=== PATIENT | male | born 1970 | race Caucasian/White ===

== ENCOUNTER 2023-04-03 19:43 | Emergency (ER) | payer MEDICAID ==
[~2023-04-03] VITALS: Ht 167.6 cm; Wt 75.0 kg
[2023-04-03 20:06] VITALS: BP 134/83; PULSE 83; RESP 18; TEMP 98; O2SAT 100
[2023-04-03 21:46] LABS: HEMATOCRIT 42.5 % (42.0-52.0); HEMOGLOBIN 14.1 g/dL (14.0-18.0); MEAN CORPUSCULAR HEMOGLOBIN 29.2 pg (28.0-32.0); MEAN CORPUSCULAR HGB CONC 33.1 g/dL (31.0-37.0); MEAN CORPUSCULAR VOLUME 88.1 fL (80.0-94.0); PLATELET 334 x1000/uL (130-400); RED BLOOD CELL COUNT 4.83 mill/uL (4.7-6.1); WHITE BLOOD COUNT 10.2 x1000/uL (4.5-11.0)
[2023-04-03 21:56] LABS: CALCIUM 8.6 mg/dL (8.7-10.4); CARBON DIOXIDE 22 mEq/L (21-32); CHLORIDE 109 mEq/L (98-107); CREATININE 0.7 mg/dL (0.6-1.3); GLUCOSE 98 mg/dL (70-105); POTASSIUM 3.9 mEq/L (3.5-5.1); SODIUM 139 mEq/L (136-145); UREA NITROGEN BLOOD 9 mg/dL (9-23)
[2023-04-04] MEDS ORDERED: FAMO-135 MT (01:24)
== END 2023-04-04 03:12 | disposition home or self-care (01) ==
LOC: ER 19:43 → EDBD 19:43 → ER 04-04 03:12
DX: R53.1 Weakness (principal); F15.10 Other stimulant abuse, uncomplicated
CPT/HCPCS: 36415; 80048; 85027; 99283